=== PATIENT | female | born 1960 | race Caucasian/White ===

== ENCOUNTER 2021-09-20 14:17 | Outpatient (CLI) | payer BC | END 2021-09-20 14:18 | disposition home or self-care (01) | LOC: CSHMRI 14:17 | PROVIDERS: ATTEND Orthopaedic Surgery Hand Surgery | DX: M18.12 Unilateral primary osteoarthritis of first carpometacarpal joint, left hand (principal); M19.042 Primary osteoarthritis, left hand ==

== ENCOUNTER 2023-04-05 12:53 | Outpatient (CLI) | payer BC | END 2023-04-05 12:54 | disposition home or self-care (01) | LOC: CSHCP 12:53 | PROVIDERS: ATTEND Family Medicine | DX: J44.9 Chronic obstructive pulmonary disease, unspecified (principal) | CPT/HCPCS: 94060; 94664; 94726; 94729; 94760 ==